=== PATIENT | female | born 1995 | race Hispanic/Latino ===

== ENCOUNTER 2017-08-10 12:46 | Emergency (ER) | payer OTHER ==
[~2017-08-10] VITALS: Ht 149.9 cm; Wt 71.2 kg
[2017-08-10 14:39] VITALS: BP 114/84
== END 2017-08-10 14:51 | disposition home or self-care (01) ==
LOC: FSED 12:46
DX: R06.09 Other forms of dyspnea (principal); K21.9 Gastro-esophageal reflux disease without esophagitis; R94.31 Abnormal electrocardiogram [ECG] [EKG]
CPT/HCPCS: 71046; 80053; 81003; 81025; 82553; 83880; 84484; 85025; 85379; 93005; 99284